=== PATIENT | female | born 1950 | race Caucasian/White ===

== ENCOUNTER 2017-08-01 10:00 | Outpatient (CLI) | payer OTHER | END 2017-08-01 20:12 | disposition home or self-care (01) | LOC: SMA 10:00 | PROVIDERS: ATTEND Specialist | DX: N63 Unspecified lump in breast (principal) | CPT/HCPCS: 76641; G0204 ==

== ENCOUNTER 2018-09-03 09:27 | Outpatient (CLI) | payer OTHER | END 2018-09-03 20:27 | disposition home or self-care (01) | LOC: SMA 09:27 | DX: Z12.31 Encounter for screening mammogram for malignant neoplasm of breast (principal); N63.20 Unspecified lump in the left breast, unspecified quadrant; N63.10 Unspecified lump in the right breast, unspecified quadrant | CPT/HCPCS: 76641; 77067 ==